=== PATIENT | male | born 1980 | race Two or more races ===

== ENCOUNTER 2017-07-04 11:16 | Inpatient (IN) | payer SELFPAY ==
[2017-07-04 12:30] LABS: ADD MAN DIFF? NO
[2017-07-04] MEDS: IOHEXOL 300 MG/ML 100ML VIAL. IV (12:30)
[2017-07-04] MEDS: ONDANSETRON PF 4 MG/2 ML VIAL. IV (12:30)
[2017-07-04] MEDS: fentaNYL PF VIAL 100 MCG/2 ML VIAL IV ×3 (12:32→17:15)
[2017-07-04 12:41] LABS: BASO % 1 % (0-3); EOS # 0.2 x10^3/uL (0.0-0.7); EOS % 2 % (0-3); HEMATOCRIT 41.5 % (39.0-53.0); LYMPH # 2.5 x10^3/uL (1.0-4.8); LYMPH % 26 % (24-48); MEAN CORPUSCULAR HEMOGLOBIN 29 pg (25-35); MEAN CORPUSCULAR HGB CONC 34 g/dL (31-37); MEAN CORPUSCULAR VOLUME 86 fL (79-100); MONO # 0.5 x10^3/uL (0.0-1.1); MONO % 6 % (0-9); NEUT # 6.3 x10^3uL (1.8-7.7); NEUT % 65 % (31-73); PLATELET COUNT 285 x10^3/uL (140-400); RED CELL DISTRIBUTION WIDTH 13.5 % (11.5-14.5); WHITE BLOOD COUNT 9.6 x10^3/uL (4.0-11.0)
[2017-07-04] MEDS ORDERED: CONTRAST GIVEN MC (12:45)
[2017-07-04 12:53] LABS: ANION GAP 7 (6-14); BLOOD UREA NITROGEN 15 mg/dL (8-26); BUN/CREATININE RATIO 17 (6-20); CALCIUM 9.4 mg/dL (8.5-10.1); CARBON DIOXIDE 30 mmol/L (21-32); CHLORIDE 103 mmol/L (98-107); CREATININE 0.9 mg/dL (0.7-1.3); GFR 94.4; GLUCOSE 91 mg/dL (70-99); SODIUM 140 mmol/L (136-145)
[2017-07-04 12:55] LABS: ALBUMIN 3.6 g/dL (3.4-5.0); ALBUMIN/GLOBULIN RATIO 0.8 (1.0-1.7); ALK PHOS 95 U/L (46-116); ALT (SGPT) 19 U/L (16-63); AST (SGOT) 16 U/L (15-37); LIPASE 163 U/L (73-393); TOTAL BILIRUBIN 0.5 mg/dL (0.2-1.0)
[2017-07-04] MEDS ORDERED: ROCURONIUM 50 MG/5 ML VIAL. (14:18)
[2017-07-04] MEDS ORDERED: FAMOTIDINE 20 MG/2 ML VIAL (14:18)
[2017-07-04] MEDS ORDERED: PROPOFOL 20 ML IV (14:18)
[2017-07-04] MEDS ORDERED: ONDANSETRON PF 4 MG/2 ML VIAL. (14:18)
[2017-07-04] MEDS ORDERED: DEXAMETHASONE SOD PHOS 20 MG/5 ML VIAL. (14:18)
[2017-07-04] MEDS ORDERED: MIDAZOLAM HCL/PF 2 MG/2 ML VIAL. (14:18)
[2017-07-04] MEDS ORDERED: LIDOCAINE 2% PF Vial for OR 5 ML VIAL. (14:18)
[2017-07-04] MEDS ORDERED: fentaNYL PF VIAL 100 MCG/2 ML VIAL ×2 (14:18→16:46)
[2017-07-04] MEDS ORDERED: SUCCINYLCHOLINE 200 MG/10 ML VIAL. (14:21)
[2017-07-04] MEDS: IV RINGERS,LACTATED 1000ML 1,000 ML IV (14:27)
[2017-07-04] MEDS ORDERED: MORPHINE SULFATE 2 MG/ML DISP.SYRIN. IV (14:30)
[2017-07-04] MEDS ORDERED: HYDROmorphone 2 MG/ML VIAL IV (14:30)
[2017-07-04] MEDS ORDERED: fentaNYL PF VIAL 100 MCG/2 ML VIAL IV (14:30)
[2017-07-04] MEDS ORDERED: ONDANSETRON PF 4 MG/2 ML VIAL. IV (14:30)
[2017-07-04] MEDS ORDERED: LIDOCAINE 1% PF 2 ML VIAL. ID (14:30)
[2017-07-04] MEDS ORDERED: BUPIVACAINE MPF 0.25% 30 ML VIAL. (14:43)
[2017-07-04] MEDS: PIPERACILLIN/TAZOBACTAM 3.375 GM in IV NORMAL SALINE 50ML 50 ML IV (15:15)
[2017-07-04] MEDS: LIDOCAINE 1%/EPI 1:100,000 20 ML VIAL. (15:36)
[2017-07-04] MEDS ORDERED: NEOSTIGMINE METHYLSULFATE 5 MG/5 ML SYRINGE. (15:50)
[2017-07-04] MEDS ORDERED: GLYCOPYRROLATE 1 MG/5 ML VIAL. (15:50)
[2017-07-04] MEDS ORDERED: SEVOFLURANE 31 TO 60 MINUTES. IH (16:04)
[2017-07-04] MEDS ORDERED: PROCHLORPERAZINE 10 MG/2 ML VIAL. (16:24)
[2017-07-04] MEDS: PROCHLORPERAZINE 10 MG/2 ML VIAL. IV (16:26)
[2017-07-04] MEDS ORDERED: diphenhydrAMINE 50 MG/ML VIAL IV (16:45)
[2017-07-04] MEDS ORDERED: 0.9 % SODIUM CHLORIDE 10 ML DISP.SYRIN. IV (16:45)
[2017-07-04] MEDS: ENOXAPARIN 40 MG/0.4 ML SYRINGE. SQ (16:45)
[2017-07-04] MEDS ORDERED: diphenhydrAMINE HCL 25 MG CAPSULE PO (16:45)
[2017-07-04] MEDS ORDERED: DEXTROSE 50% 25 GM / 50ML DISP.SYRIN. IV (16:45)
[2017-07-04] MEDS ORDERED: oxyCODONE IR 5 MG TABLET PO (16:45)
[2017-07-04] MEDS: POTASSIUM CL 20MEQ-0.45% NACL 1,000 ML IV (17:52)
[2017-07-04] MEDS: HYDROmorphone 2 MG/ML VIAL IV (20:05)
[2017-07-04] MEDS: DOCUSATE SODIUM 100 MG CAPSULE. PO (20:42)
[2017-07-05] MEDS: HYDROmorphone 2 MG/ML VIAL IV ×2 (00:46→08:19)
[2017-07-05 01:40] LABS: BILIRUBIN,URINE NEGATIVE (NEG); CLARITY,URINE CLEAR; COLOR,URINE YELLOW; GLUCOSE,URINE NEGATIVE (NEG); NITRITE,URINE NEGATIVE (NEG); PH,URINE 6.5; PROTEIN,URINE NEGATIVE (NEG-TRACE); UROBILINOGEN,URINE 0.2 mg/dL (0.2 mg/dL)
[2017-07-05 01:41] LABS: BACTERIA,URINE 0 /HPF (0-FEW); RBC,URINE TNTC /HPF (0-2); SQUAMOUS EPITHELIAL CELL,UR FEW /LPF; WBC,URINE OCC /HPF (0-4)
[2017-07-05] MEDS: POTASSIUM CL 20MEQ-0.45% NACL 1,000 ML IV ×2 (03:02→12:37)
[2017-07-05] MEDS: ONDANSETRON PF 4 MG/2 ML VIAL. IV ×2 (06:04→12:23)
[2017-07-05] MEDS: oxyCODONE/APAP 5/325 1 TAB TABLET PO ×2 (06:05→11:09)
[2017-07-05] MEDS: DOCUSATE SODIUM 100 MG CAPSULE. PO (08:19)
== END 2017-07-05 16:16 | disposition home or self-care (01) | DRG 343 ==
LOC: ER 11:16 → 4 NORTH 13:30
PROC: 0DTJ4ZZ Resection of Appendix, Percutaneous Endoscopic Approach (ICD-10-PCS; principal; 2017-07-04 15:17)
DX: K35.80 Unspecified acute appendicitis (principal); K59.00 Constipation, unspecified
CPT/HCPCS: 36415; 74177; 80053; 81001; 83690; 85025; 88304; 96374; 96375; 99285-25; C1769; J0330; J0780; J1100; J1170; J2250; J2405; J2543; J2704; J2710; J3010; J3490; J7030; Q9967; S0028

== ENCOUNTER 2018-12-04 18:15 | Emergency (ER) | payer BC ==
[~2018-12-04] VITALS: Ht 167.6 cm; Wt 83.5 kg
[~2018-12-04 18:15] MED LIST: ONDA4TAB11 PO; OXYC1TAB15 PO; PROM25TA10 PO
[2018-12-04 19:22] LABS: BASO % 0 % (0-3); EOS # 0.2 x10^3/uL (0.0-0.7); EOS % 2 % (0-3); HEMATOCRIT 39.3 % (39.0-53.0); HEMOGLOBIN 13.2 g/dL (13.0-17.5); LYMPH # 2.2 x10^3/uL (1.0-4.8); LYMPH % 26 % (24-48); MEAN CORPUSCULAR HEMOGLOBIN 30 pg (25-35); MEAN CORPUSCULAR HGB CONC 34 g/dL (31-37); MEAN CORPUSCULAR VOLUME 88 fL (79-100); MONO # 0.8 x10^3/uL (0.0-1.1); MONO % 9 % (0-9); NEUT # 5.4 x10^3/uL (1.8-7.7); NEUT % 63 % (31-73); PLATELET COUNT 273 x10^3/uL (140-400); RED BLOOD COUNT 4.49 x10^6/uL (4.30-5.70); RED CELL DISTRIBUTION WIDTH 13.6 % (11.5-14.5); WHITE BLOOD COUNT 8.6 x10^3/uL (4.0-11.0)
[2018-12-04 19:24] LABS: BILIRUBIN,URINE NEGATIVE (NEG); CLARITY,URINE CLEAR; COLOR,URINE YELLOW; NITRITE,URINE NEGATIVE (NEG); PH,URINE 5.5; PROTEIN,URINE NEGATIVE (NEG-TRACE); UROBILINOGEN,URINE 0.2 mg/dL (0.2 mg/dL)
[2018-12-04 19:29] LABS: BACTERIA,URINE 0 /HPF (0-FEW); RBC,URINE 0 /HPF (0-2); SQUAMOUS EPITHELIAL CELL,UR OCC /LPF; WBC,URINE 0 /HPF (0-4)
[2018-12-04 19:42] LABS: CALCIUM 8.9 mg/dL (8.5-10.1); CREATININE 1.2 mg/dL (0.7-1.3); GFR 67.4; POTASSIUM 3.7 mmol/L (3.5-5.1)
[2018-12-04 19:48] LABS: ALBUMIN 3.4 g/dL (3.4-5.0); ALBUMIN/GLOBULIN RATIO 0.8 (1.0-1.7); TOTAL BILIRUBIN 0.2 mg/dL (0.2-1.0); TOTAL PROTEIN 7.5 g/dL (6.4-8.2)
[2018-12-04] MEDS ORDERED: CONTRAST GIVEN. MC PRN (20:00)
[2018-12-04] MEDS ORDERED: IOHEXOL 300 MG/ML 100ML VIAL. IV ONE (20:00)
--- NOTE | 2018-12-04 20:52 | RAD ---
CT SCAN OF THE ABDOMEN AND PELVIS WITH IV CONTRAST. History: Lower abdominal pain Comparison:None. Procedure: Contiguous axial images of the abdomen and pelvis were performed after the administration of 75 cc of Omni 300 IV contrast and without oral contrast. CT Abdomen with contrast: Findings: Liver: Unremarkable Spleen: Unremarkable Pancreas: Unremarkable Adrenal Glands: Unremarkable Kidneys: Unremarkable There is no mass or lymphadenopathy. There is no free air. There is no free fluid. Impression: No acute findings. End Impression CT Pelvis with Contrast: Findings: The urinary bladder appears normal. There is no free fluid. There is no lymphadenopathy. There has been prior appendectomy. There is a fat-containing inguinal canal hernia bilaterally left greater than right. The prostate is not enlarged. The left colon is collapsed limiting its evaluation. Impression: No acute findings. PQRS Compliance Statement: One or more of the following individualized dose reduction techniques were utilized for this examination: 1. Automated exposure control 2. Adjustment of the mA and/or kV according to patient size 3. Use of iterative reconstruction technique Electronically signed by: Arsen Jacob III, MD (12/04/2018 8:49 PM) [facility]
--- NOTE | 2018-12-04 21:08 | PHYS DOC ---
Past Medical History Past Medical History: No Pertinent History (AMILCAR WHITE APRN) Past Surgical History: Appendectomy, Other Additional Past Surgical Histo: SHOULDER (AMILCAR WHITE APRN) Alcohol Use: Occasionally Additional Information: "WEEKENDS" Drug Use: None (AMILCAR WHITE APRN) Adult General Chief Complaint Chief Complaint: BLOODY STOOL HPI HPI Patient is a 38 year old male, accompanied by his spouse, with complaints of generalized left-sided abdominal pain for the last 3 days. Patient states yesterday he had bright red blood in his stools and on the tissue when he wiped. He denies any nausea, vomiting, back pain, dysuria, hematuria, fever, cough, or shortness of breath. Patient states he had one episode of diarrhea 2 days ago. This morning he had a small hard bowel movement that had bright red blood streaks on the toilet paper when he wiped. Currently, he rates his discomfort an 8 out of 10 on a pain scale, there are no alleviating or exacerbating factors. (AMILCAR WHITE APRN) Review of Systems Review of Systems Constitutional: Denies fever or chills [] HENT: Denies nasal congestion or sore throat [] Respiratory: Denies cough or shortness of breath [] Cardiovascular: No additional information not addressed in HPI [] GI: see HPI : Denies dysuria or hematuria [] Musculoskeletal: Denies back pain or joint pain [] Integument: Denies rash or skin lesions [] Neurologic: Denies headache, focal weakness or sensory changes [] Complte systems were reviewed and found to be within normal limits, except as documented in this note. (AMILCAR WHITE APRN) Current Medications Current Medications Current Medications Medications (Trade) Dose Ordered Sig/Urmila Start Time Stop Time Status Last Admin Dose Admin Info (CONTRAST GIVEN -- Rx MONITORING) 1 each PRN DAILY PRN 12/04/18 20:00 12/04/18 21:52 DC Iohexol (Omnipaque 300 Mg/ml) 75 ml 1X ONCE 12/04/18 20:00 12/04/18 20:01 DC 12/04/18 20:06 75 ML (ELEANOR MCGARRY MD) Allergies Allergies Allergies Coded Allergies Type Severity Reaction Last Updated Verified No Known Drug Allergies 07/04/17 No (ELEANOR MCGARRY MD) Physical Exam Physical Exam Constitutional: Well developed, well nourished, no acute distress, non-toxic appearance. [] HENT: Normocephalic, atraumatic, bilateral external ears normal, oropharynx moist, no oral exudates, nose normal. [] Eyes: conjunctiva normal, no discharge. [] Neck: Normal range of motion, no stridor. [] Cardiovascular:Heart rate regular rhythm, no murmur [] Lungs & Thorax: Bilateral breath sounds clear to auscultation [] Abdomen: Bowel sounds normal, soft, no masses, no pulsatile masses; LUQ, LLQ, RLQ tenderness to palpation, no guarding or rebound tenderness Rectal Exam: Normal tone, No mass, Positive control Stool: Brown Skin: Warm, dry, no erythema, no rash. [] Extremities: No cyanosis, ROM intact, Neurologic: Alert and oriented X 3, no focal deficits noted. [] Psychologic: Affect normal, judgement normal, mood normal. [] (AMILCAR WHITE APRN) Current Patient Data Vital Signs Vital Signs Date Time Temp Pulse Resp B/P (MAP) Pulse Ox O2 Delivery O2 Flow Rate FiO2 12/04/18 21:15 84 16 123/85 (98) 97 Room Air 12/04/18 18:20 98.9 98.9 (ELEANOR MCGARRY MD) Lab Values Laboratory Tests Test 12/04/18 19:05 12/04/18 19:10 Urine Collection Type Unknown Urine Color Yellow Urine Clarity Clear Urine pH 5.5 Urine Specific [place] 1.025 Urine Protein Negative mg/dL (NEG-TRACE) Urine Glucose (UA) Negative mg/dL (NEG) Urine Ketones (Stick) Negative mg/dL (NEG) Urine Blood Negative (NEG) Urine Nitrite Negative (NEG) Urine Bilirubin Negative (NEG) Urine Urobilinogen Dipstick 0.2 mg/dL (0.2 mg/dL) Urine Leukocyte Esterase Negative (NEG) Urine RBC 0 /HPF (0-2) Urine WBC 0 /HPF (0-4) Urine Squamous Epithelial Cells Occ /LPF Urine Bacteria 0 /HPF (0-FEW) White Blood Count 8.6 x10^3/uL (4.0-11.0) Red Blood Count 4.49 x10^6/uL (4.30-5.70) Hemoglobin 13.2 g/dL (13.0-17.5) Hematocrit 39.3 % (39.0-53.0) Mean Corpuscular Volume 88 fL (79-100) Mean Corpuscular Hemoglobin 30 pg (25-35) Mean Corpuscular Hemoglobin Concent 34 g/dL (31-37) Red Cell Distribution Width 13.6 % (11.5-14.5) Platelet Count 273 x10^3/uL (140-400) Neutrophils (%) (Auto) 63 % (31-73) Lymphocytes (%) (Auto) 26 % (24-48) Monocytes (%) (Auto) 9 % (0-9) Eosinophils (%) (Auto) 2 % (0-3) Basophils (%) (Auto) 0 % (0-3) Neutrophils # (Auto) 5.4 x10^3/uL (1.8-7.7) Lymphocytes # (Auto) 2.2 x10^3/uL (1.0-4.8) Monocytes # (Auto) 0.8 x10^3/uL (0.0-1.1) Eosinophils # (Auto) 0.2 x10^3/uL (0.0-0.7) Basophils # (Auto) 0.0 x10^3/uL (0.0-0.2) Sodium Level 145 mmol/L (136-145) Potassium Level 3.7 mmol/L (3.5-5.1) Chloride Level 107 mmol/L (98-107) Carbon Dioxide Level 27 mmol/L (21-32) Anion Gap 11 (6-14) Blood Urea Nitrogen 17 mg/dL (8-26) Creatinine 1.2 mg/dL (0.7-1.3) Estimated GFR (Cockcroft-Gault) 67.4 BUN/Creatinine Ratio 14 (6-20) Glucose Level 123 mg/dL (70-99) H Calcium Level 8.9 mg/dL (8.5-10.1) Total Bilirubin 0.2 mg/dL (0.2-1.0) Aspartate Amino Transferase (AST) 32 U/L (15-37) Alanine Aminotransferase (ALT) 42 U/L (16-63) Alkaline Phosphatase 110 U/L (46-116) Total Protein 7.5 g/dL (6.4-8.2) Albumin 3.4 g/dL (3.4-5.0) Albumin/Globulin Ratio 0.8 (1.0-1.7) L Laboratory Tests 12/04/18 19:10 Laboratory Tests 12/04/18 19:10 (ELEANOR MCGARRY MD) EKG EKG [] (AMILCAR WHITE APRN) Radiology/Procedures Radiology/Procedures PROCEDURE: CT ABD PELV W/ IV CONTRST ONLY CT SCAN OF THE ABDOMEN AND PELVIS WITH IV CONTRAST. History: Lower abdominal pain Comparison:None. Procedure: Contiguous axial images of the abdomen and pelvis were performed after the administration of 75 cc of Omni 300 IV contrast and without oral contrast. CT Abdomen with contrast: Findings: Liver: Unremarkable Spleen: Unremarkable Pancreas: Unremarkable Adrenal Glands: Unremarkable Kidneys: Unremarkable There is no mass or lymphadenopathy. There is no free air. There is no free fluid. Impression: No acute findings. End Impression CT Pelvis with Contrast: Findings: The urinary bladder appears normal. There is no free fluid. There is no lymphadenopathy. There has been prior appendectomy. There is a fat-containing inguinal canal hernia bilaterally left greater than right. The prostate is not enlarged. The left colon is collapsed limiting its evaluation. [] (AMILCAR WHITE APRN) Course & Med Decision Making Course & Med Decision Making Pertinent Labs and Imaging studies reviewed. (See chart for details) dx: Abdominal pain, rectal bleeding ddx: SBO, diverticulitis, colitis, CBC unremarkable, CMP unremarkable, UA unremarkable. CT abdomen and pelvis negative for any acute findings. Rectal exam negative for gross blood. Prescription written for Anusol HC rectal suppositories. Patient encouraged to drink one capful of MiraLAX twice daily until stools are soft. Provided patient with Dr. Adalid Duarte's contact information for further evaluation of frequent abdominal pain and constipation issues. Return to the ER if symptoms worsen. Patient verbalized an understanding of home care, medications, follow-up, and return to ED instructions and was in agreement with the plan of care. (AMILCAR WHITE APRN) Course & Med Decision Making Staff Physician Addendum: I was working in the ER during the course of this patient's visit. I was available for consultation as needed, but I was not directly involved in the care of this patient. (ELEANOR MCGARRY MD) Dragon Disclaimer Dragon Disclaimer This electronic medical record was generated, in whole or in part, using a voice recognition dictation system. (AMILCAR WHITE APRN) Departure Departure Impression: Primary Impression: Left sided abdominal pain Additional Impression: Rectal bleeding Disposition: HOME, SELF-CARE Condition: STABLE Referrals: UNKNOWN PCP NAME (PCP) ADALID DUARTE MD Patient Instructions: Abdominal Pain (Nonspecific), Rectal Bleeding, [id number] Additional Instructions: Take Miralax 1 capful twice a day until stools are soft then one capful daily. Increase water intake. Follow up with your primary care doctor or if symptoms persist, return to the ER if symptoms worsen. Scripts Hydrocortisone Acetate (ANUSOL-HC) 25 Mg Supp.rect 1 SUPP RC BID PRN for SEE COMMENTS, #14 SUPP 0 Refills prn Hemorrhoids Prov: AMILCAR WHITE APRN 12/04/18 Problem Qualifiers AMILCAR WHITE APRN Dec 04, 2018 21:07 ELEANOR MCGARRY MD Dec 05, 2018 03:55
[2018-12-04 21:15] VITALS: BP 123/85
[2018-12-04] MEDS ORDERED: HYDR25SU18 RC (21:33)
== END 2018-12-04 21:50 | disposition home or self-care (01) ==
LOC: ER 18:15
DX: K62.5 Hemorrhage of anus and rectum (principal); R10.84 Generalized abdominal pain; Z90.89 Acquired absence of other organs
CPT/HCPCS: 36415; 74177; 80053; 81001; 85025; 99285; Q9967

== ENCOUNTER 2020-09-26 20:05 | Emergency (ER) | payer SELFPAY ==
[~2020-09-26] VITALS: Ht 167.6 cm; Wt 79.0 kg
[~2020-09-26 20:05] MED LIST changes: +HYDR25SU18 RC; +ONDA-84 PO; -ONDA4TAB11 PO
[2020-09-26] MEDS ORDERED: diazePAM 5 MG TABLET PO ONE (23:45)
[2020-09-26] MEDS ORDERED: KETOROLAC 60 MG/2 ML VIAL. IM ONE (23:45)
[2020-09-27] MEDS ORDERED: LIDOCAINE (700MG/PATCH) PATCH. TD SCH
[2020-09-27 00:01] VITALS: BP 123/76
--- NOTE | 2020-09-27 02:24 | PHYS DOC ---
Past Medical History Past Medical History: Other Additional Past Medical Histor: BACK PAIN Past Surgical History: Appendectomy, Other Additional Past Surgical Histo: SHOULDER Smoking Status: Never Smoker Alcohol Use: None Drug Use: None General Adult EDM: Chief Complaint: LOWER EXT PAIN HPI: HPI: 40-year-old male presents the ED with his girlfriend, complains of left buttock pain that radiates down his left leg that started around 1 PM today while lifting a box. Review of Systems: Review of Systems: Constitutional: Denies fever or chills. [] Eyes: Denies change in visual acuity. [] HENT: Denies nasal congestion or sore throat. [] Respiratory: Denies cough or shortness of breath. [] Cardiovascular: Denies chest pain or edema. [] GI: Denies abdominal pain, nausea, vomiting, bloody stools or diarrhea. [] : Denies dysuria. [] Musculoskeletal: Denies back pain or joint pain. [] Integument: Denies rash. [] Neurologic: Denies headache, focal weakness or sensory changes. [] Endocrine: Denies polyuria or polydipsia. [] Lymphatic: Denies swollen glands. [] Psychiatric: Denies depression or anxiety. [] Heart Score: C/O Chest Pain: No Risk Factors: Risk Factors: DM, Current or recent (<one month) smoker, HTN, HLP, family history of CAD, obesity. Risk Scores: Score 0 - 3: 2.5% MACE over next 6 weeks - Discharge Home Score 4 - 6: 20.3% MACE over next 6 weeks - Admit for Clinical Observation Score 7 - 10: 72.7% MACE over next 6 weeks - Early Invasive Strategies Current Medications: Current Medications Medications (Trade) Dose Ordered Sig/[facility] Start Time Stop Time Status Last Admin Dose Admin Diazepam (Valium) 5 mg 1X ONCE 09/26/20 23:45 09/26/20 23:46 DC 09/27/20 00:33 5 MG Ketorolac Tromethamine (Toradol Im) 30 mg 1X ONCE 09/26/20 23:45 09/26/20 23:46 DC 09/27/20 00:33 30 MG Lidocaine (Lidoderm) 1 patch DAILY 09/27/20 00:00 09/27/20 00:34 1 PATCH Allergies: Allergies: Allergies Coded Allergies Type Severity Reaction Last Updated Verified No Known Drug Allergies 2/12/18 No Physical Exam: PE: Constitutional: Well developed, well nourished, no acute distress, non-toxic appearance. HENT: Normocephalic, atraumatic, Eyes: EOMI, conjunctiva normal, no discharge. Neck: Normal range of motion, supple, Cardiovascular: S1/2 present, regular rhythm Lungs & Thorax: Speaking in full sentences, bilateral equal chest rise, no tachypnea or increased work of breathing Abdomen: soft, no tenderness, Skin: Warm, dry, no erythema, no rash. [] Back: No tenderness, no CVA tenderness. [] Extremities: No tenderness, no cyanosis, no lower extremity edema Neurologic: Alert and oriented X 3, normal motor function, normal sensory function, no focal deficits noted. [] Psychologic: Affect normal, judgement normal, mood normal. [] Current Patient Data: Vital Signs: Vital Signs Date Time Temp Pulse Resp B/P (MAP) Pulse Ox O2 Delivery O2 Flow Rate FiO2 09/27/20 00:01 68 12 123/76 (92) 98 09/26/20 20:32 98.1 Room Air 98.1 EKG: EKG: [] Radiology/Procedures: Radiology/Procedures: [] Course & Med Decision Making: Course & Med Decision Making Pertinent Labs and Imaging studies reviewed. (See chart for details) Will discharge home with strict ED return precautions were given for []. Encouraged urgent outpatient follow-up with PMD and Ortho for further evaluation. Life-threatening processes were considered but are low suspicion at this time, given history, physical exam and ED workup. Pt was educated on all prescription medications and adverse effects. All patient's questions were answered and pt was stable at time of discharge. Life/limb-threatening differential includes but is not limited to, aortic dissection/aneurysm, cauda equina syndrome, transverse myelitis, spinal cord/epidural compression syndromes, discitis, spinal stenosis, epidural abscess or hematoma, osteomyelitis, disc herniation, surgical abdomen, stable or unstable fracture, renal/ureteral colic, sepsis, meningitis, musculoskeletal injury, traumatic injury, intraabdominal/retroperitoneal or pelvic bleeding. I spoken with the patient and her caregivers. I explained the patient's condition, diagnoses and treatment plan based on the information available to me at this time. I have answered the patient and her caregiver's questions and addressed any concerns. The patient and her caregivers have a good understanding of patient's diagnosis, condition and treatment plan as can be expected at this point. Vital signs have been stable. Patient's condition is stable and appropriate for discharge from the emergency department. Patient will pursue further outpatient evaluation with primary care physician or other designated or consulting physician as outlined in the discharge instructions. The patient and/or caregivers are agreeable to this plan of care and follow-up instructions have been explained in detail. The patient and/or caregivers have received these instructions in written form and have expressed an understanding of the discharge instructions. The patient and/or caregivers are aware that any significant change of condition or worsening of symptoms should prompt immediate return to this or the closest emergency department or call to 1. Zehra Disclaimer: Zehra Disclaimer: This electronic medical record was generated, in whole or in part, using a voice recognition dictation system. Departure Departure Impression: Primary Impression: Left low back pain Additional Impression: Sciatica Disposition: HOME / SELF CARE / HOMELESS Condition: STABLE Referrals: UNKNOWN PCP NAME (PCP) FOLLOW UP WITH FAMILY MEDICINE: [id number] [facility] [address] [place] [address] Patient Instructions: Back Pain, Adult, Sciatica Additional Instructions: FOLLOW UP WITH ORTHOPEDICS: Orthopaedic Sports Medicine Orthopaedic Surgery [facility] [address] [facility], [facility] [address] [place] [address] EMERGENCY DEPARTMENT GENERAL DISCHARGE INSTRUCTIONS Thank you for coming to [facility] Emergency Department (ED) today and trusting us with you care. We trust that you had a positive experience in our Emergency Department. If you wish to speak to the department management, you may call the Director at [phone]. YOUR FOLLOW UP INSTRUCTIONS ARE FOLLOWS: 1. Do you have a private Doctor? If you do not have a private doctor, please ask for a resource list of physicians or clinics that may be able to assist you with f ollow up care. 2. The Emergency Physicain has interpreted your x-rays. The X-Ray specialist will also review them. If there is a change in the findings, you will be notified in 48 hours when at all possible. 3. A lab test or culture has been done, your results will be reviewed and you will be notified if you need a change in treatment. ADDITIONAL INSTRUCTIONS AND INFORMATION: 1. Your care today has been supervised by a physician who is specially trained in emergency care. Many problems require more than one evaluation for a complete diagnosis and treatment. We recommend that you schedule your follow up appointment as recommended to ensure complete treatment of you illness or injury. If you are unable to obtain follow up care and continue to have a problem, or if your condition worsens, we recommend that you return to the ED. 2. We are not able to safely determine your condition over the phone nor are we able to give sound medical advice over the phone. For these safety reasons, if you call for medical advice we will ask you to come to the ED for further evaluation. 3. If you have any questions regarding these discharge instructions please call the ED at [phone]. SAFETY INFORMATION: In the interest of safety, wellness, and injury prevention; we encourage you to wear your sealbelt, if you smoke; quite smoking, and we encourage family to use a protect elba helmet for bicycling and other sporting events that present an increased risk for head injury. IF YOUR SYMPTOMS WORSEN OR NEW SYMPTOMS DEVELOP, OR YOU HAVE CONCERNS ABOUT YOUR CONDITION; OR IF YOUR CONDITION WORSENS WHILE YOU ARE WAITING FOR YOUR FOLLOW UP APPOINTMENT; EITHER CONTACT YOUR PRIMARY CARE DOCTOR, THE PHYSICIAN WHOSE NAME AND NUMBER YOU WERE GIVEN, OR RETURN TO THE ED IMMEDIATELY. Scripts Lidocaine (Lido Itz) 1 Each Adh..patch 1 EACH TP DAILY for 5 Days, #5 PATCH Apply 1 patch for 12 hours, remove for another 12 hours. May repeat, 1 patch per day as instructed above. Prov: JHONY GUAMAN DO 09/27/20 JHONY GUAMAN DO September 27, 2020 02:24
[2020-09-27] MEDS ORDERED: LIDO1ADH78 TP (02:58)
== END 2020-09-27 03:10 | disposition home or self-care (01) ==
LOC: ER 20:05
DX: M54.42 Lumbago with sciatica, left side (principal); Z90.89 Acquired absence of other organs
CPT/HCPCS: 96372; 99283; J1885